=== PATIENT | male | born 2005 | race African-American/Black ===

== ENCOUNTER 2025-03-16 20:31 | Emergency (ER) | payer BC, OTHER, SELFPAY ==
[2025-03-16] MEDS ORDERED: Tetracaine 0.5% PF 4 ML BOT ONE (20:56)
[2025-03-16] MEDS ORDERED: Fluorescein Opthalmic Strip ONE (20:56)
== END 2025-03-16 21:41 | disposition home or self-care (01) ==
LOC: CSHERS 20:31
DX: S05.91XA Unspecified injury of right eye and orbit, initial encounter (principal); X58.XXXA Exposure to other specified factors, initial encounter
CPT/HCPCS: 99283